=== PATIENT | male | born 1955 | race Caucasian/White ===

== ENCOUNTER 2018-12-20 12:31 | Observation (INO) ==
[2018-12-20] MEDS ORDERED: ONDANSETRON 4 MG/2 ML VIAL ONE (13:12)
[2018-12-20] MEDS ORDERED: DILTIAZEM 25 MG/5 ML VIAL IV ONE (13:12)
[2018-12-20] MEDS ORDERED: METOPROLOL TARTRATE 25 MG TABLET PO STA (13:21)
[2018-12-20] MEDS ORDERED: DILTIAZEM 50 MG/10 ML VIAL IV STA (13:21)
[2018-12-20 13:30] LABS: Basophils % 0.6 % (0.0-0.8); Eosinophils # 0.3 10*3/uL (0.0-0.87); Eosinophils % 4.2 % (0.00-10.9); Hematocrit 48.9 VOL% (42.0-52.0); Hemoglobin 16.2 GM/DL (14.0-18.0); Immature Granulocytes % 0.3 %; Immature Granulocytes Absolute 0.02 #; Lymphocytes # 2.3 10*3/uL (1.4-4.0); Lymphocytes % 34.2 % (21.2-54.2); Mean Corpuscular HGB Conc 33.1 GM/DL (32-36); Mean Corpuscular Hemoglobin 31 PG (27-34); Mean Corpuscular Volume 92.8 FL (87-102); Mean Platelet Volume 10.6 FL (9.6-12.0); Monocytes # 0.7 10*3/uL (0.11-0.8); Monocytes % 10.3 % (1.7-12.7); Neutrophils # 3.3 10*3/uL (1.4-7.4); Neutrophils % 50.4 % (38.7-73.9); Platelet Count 210 T/CUMM (130-400); Red Blood Count 5.27 MC/CUMM (3.8-5.5); Red Cell Distribution Width 13.2 % (9.3-17.3); White Blood Count 6.6 T/CUMM (4-12)
[2018-12-20 13:40] LABS: PT Patient Result 11.3 SECS; Partial Thromboplastin Time 26.4 SECS (0-40)
[2018-12-20] MEDS ORDERED: ONDANSETRON 4 MG/2 ML VIAL IV STA (13:44)
[2018-12-20 13:57] LABS: Alanine Aminotransferase 24 U/L (16-61); Alkaline Phosphatase 78 U/L (45-117); Aspartate Amino Transferase 20 U/L (0-37); Blood Urea Nitrogen 19 MG/DL (7-18); Calcium 8.8 MG/DL (8.5-10.1); Free T4 (Free Thyroxine) 1.03 NG/DL (0.76-1.46); Glucose 96 MG/DL (74-106); Osmolality,Calculated 282.3 MOS/KG (273-304); Potassium 4.2 MMOL/L (3.5-5.1); Sodium 141 MMOL/L (136-145); Total Protein 7.4 G/DL (6.4-8.3); Troponin I < 0.015 NG/ML (0.00-0.045)
[2018-12-20] MEDS ORDERED: PSEUDOEPHEDRINE PO PRN (14:37)
[2018-12-20] MEDS ORDERED: FEXOFENADINE PO PRN (14:37)
[2018-12-20] MEDS ORDERED: [UNRECOGNIZED DRUG - OTHER] PO PRN (14:37)
[2018-12-20 14:52] LABS: Barbiturates Screen,Urine Negative (Negative); Benzodiazepines Screen,Urine Negative (Negative); Cannabinoid Screen,Urine Negative (Negative); Opiate Screen,Urine Negative (Negative); Phencyclidine Screen,Urine Negative (Negative)
[2018-12-20] MEDS ORDERED: ALUM/MAG/SIMETH/LIDO VISC 1:1 30 ML BOTTLE PO PRN (15:08)
[2018-12-20] MEDS ORDERED: ACETAMINOPHEN 325 MG TABLET PO PRN (15:08)
[2018-12-20] MEDS ORDERED: MORPHINE 4 MG/1 ML VIAL IV PRN (15:08)
[2018-12-20] MEDS ORDERED: POTASSIUM CHLORIDE 20 MEQ TABLET PO PRN ×2 (15:08)
[2018-12-20] MEDS ORDERED: MAGNESIUM SULF RIDER 4 GM in PREMIX 1 EACH IV PRN (15:08)
[2018-12-20] MEDS ORDERED: ZALEPLON 5 MG CAPSULE PO PRN (15:08)
[2018-12-20] MEDS ORDERED: ONDANSETRON 4 MG/2 ML VIAL IV PRN (15:08)
[2018-12-20] MEDS ORDERED: MAGNESIUM SULF RIDER 2 GM in PREMIX 1 EACH IV PRN (15:08)
[2018-12-20] MEDS ORDERED: SODIUM CHLORIDE 0.45% 1,000 ML IV SCH (15:30)
[2018-12-20] MEDS ORDERED: APIXABAN 2.5 MG TABLET PO SCH (21:00)
[2018-12-20] MEDS ORDERED: METOPROLOL TARTRATE 50 MG TABLET PO SCH (21:00)
[2018-12-20] MEDS ORDERED: ASCORBIC ACID 500 MG TABLET PO SCH (21:00)
[2018-12-20] MEDS ORDERED: ATORVASTATIN 20 MG TABLET PO SCH (21:00)
[2018-12-20] MEDS ORDERED: MULTIVITAMIN (CENTRUM) TABLET PO SCH (21:00)
[2018-12-21 04:21] LABS: Basophils % 0.6 % (0.0-0.8); Eosinophils # 0.4 10*3/uL (0.0-0.87); Eosinophils % 5.7 % (0.00-10.9); Hematocrit 42.9 VOL% (42.0-52.0); Hemoglobin 13.9 GM/DL (14.0-18.0); Immature Granulocytes % 0.3 %; Immature Granulocytes Absolute 0.02 #; Lymphocytes # 2.4 10*3/uL (1.4-4.0); Mean Corpuscular HGB Conc 32.4 GM/DL (32-36); Mean Corpuscular Hemoglobin 31 PG (27-34); Mean Corpuscular Volume 94.1 FL (87-102); Mean Platelet Volume 10.9 FL (9.6-12.0); Monocytes # 0.7 10*3/uL (0.11-0.8); Monocytes % 11.5 % (1.7-12.7); Neutrophils # 2.7 10*3/uL (1.4-7.4); Neutrophils % 42.9 % (38.7-73.9); Platelet Count 201 T/CUMM (130-400); Red Blood Count 4.56 MC/CUMM (3.8-5.5); Red Cell Distribution Width 13.4 % (9.3-17.3); White Blood Count 6.2 T/CUMM (4-12)
[2018-12-21 04:36] LABS: Risk Ratio 3.6; VLDL CHOLESTEROL 22.6 MG/DL
[2018-12-21 04:38] LABS: Albumin 3.4 G/DL (3.4-5.0); Bilirubin,Total 0.5 MG/DL (0.2-1.0); Calcium 8.2 MG/DL (8.5-10.1); Osmolality,Calculated 283.3 MOS/KG (273-304); Total Protein 6.3 G/DL (6.4-8.3)
[2018-12-21] MEDS ORDERED: APIXABAN 5 MG TABLET PO SCH (08:20)
[2018-12-21 08:37] VITALS: BP 137/80
[2018-12-21] MEDS ORDERED: ASCORBIC ACID 500 MG TABLET PO SCH (09:00)
[2018-12-21] MEDS ORDERED: BISOPROLOL/HCTZ 10-6.25 MG TABLET PO SCH (09:00)
[2018-12-21] MEDS ORDERED: MELOXICAM 7.5 MG TABLET PO SCH (09:00)
[2018-12-21] MEDS ORDERED: ASPIRIN EC 81 MG TABLET PO SCH (09:00)
[2018-12-21] MEDS ORDERED: FLECAINIDE 50 MG TABLET PO SCH (09:00)
== END 2018-12-21 10:49 | disposition home or self-care (01) ==
LOC: N.EDINP 12:31 → N.ED 12:31 → SUATTDRO 15:08 → N.TELEN 16:39
PROVIDERS: ADMIT Hospitalist; ATTEND Internal Medicine